=== PATIENT | female | born 1945 | race Caucasian/White ===

== ENCOUNTER 2016-05-02 15:37 | Emergency (ER) | payer MEDICARE ==
[~2016-05-02] VITALS: Ht 157.5 cm; Wt 70.0 kg
[2016-05-02 15:41] VITALS: BP 156/83; PULSE 84; RESP 17; TEMP 98.2; O2SAT 97
[2016-05-02] MEDS ORDERED: ROPI.25 PO (16:07)
[2016-05-02] MEDS ORDERED: LISI-515 PO (16:07)
[2016-05-02] MEDS ORDERED: SIMV5TAB3 PO (16:07)
--- NOTE | 2016-05-02 16:07 | PD ---
HPI . SLIP AND FALL HURT LEFT ELBOW/FOREARM Chief Complaint: Injury Time Seen by Provider: 16:07 Travel History International Travel<30 days: No Contact w/Intl Traveler<30days: No Traveled to known affect area: No History of Present Illness HPI 70-year-old female with hypertension and hyperlipidemia here with complaints of a slip and fall accident earlier today. Patient was walking and thinks she slipped on some uneven pavement. She is now complaining of pain in her left posterior elbow and distal to at the cubital fossa. She says initially the pain was very severe, however she took some hydrocodone at home and now the pain is "not relevant." She denies any LOC or head injury. She is accompanied by her significant other. She is right handed dominant. PFSH Past Medical History High Cholesterol: Yes Cerebrovascular Accident: Yes Hypertension: Yes Tetanus Vaccination: < 5 Years Influenza Vaccination: No ?: Not Menopausal: Yes Past Surgical History Cholecystectomy: Yes Eye Surgery: Yes (BILAT CATARACTS) Neurologic Surgery: Yes (BACK) Social History Alcohol Use: Yes (OCC) Tobacco Use: No Substance Use: No Allergies-Medications (Allergen,Severity, Reaction): Coded Allergies: Codeine (Verified Allergy, Severe, ITCHING, 05/02/16) Reported Meds & Prescriptions Reported Meds & Active Scripts Active Reported Requip (Ropinirole HCl) 0.25 Mg Tab 0.25 Mg PO HS Simvastatin 5 Mg Tab 5 Mg PO DAILY Lisinopril 20 Mg Tab 20 Mg PO DAILY Review of Systems General / Constitutional: No: Fever Eyes: No: Visual changes HENT: No: Headaches Cardiovascular: No: Chest Pain or Discomfort Respiratory: No: Shortness of Breath Gastrointestinal: No: Abdominal Pain Genitourinary: No: Dysuria Musculoskeletal: Positive: Pain (left elbow/forearm) Skin: No Rash Neurologic: No: Weakness Psychiatric: No: Depression Endocrine: No: Polydipsia Hematologic/Lymphatic: No: Easy Bruising Physical Exam Narrative GENERAL: AAO x 3, no acute distress, Well-nourished, well-developed patient. SKIN: Warm and dry. No visible rashes or bruising. HEAD: Normocephalic and atraumatic. EYES: No scleral icterus. No injection or drainage. ENT: No nasal drainage noted. Mucous membranes pink. Airway patent. NECK: Supple, trachea midline. No JVD. CARDIOVASCULAR: Regular rate and rhythm without murmurs, gallops, or rubs. RESPIRATORY: Breath sounds equal bilaterally. No accessory muscle use. No rhonchi or rales. GASTROINTESTINAL: Abdomen soft, non-tender, nondistended. EXTREMITIES: No cyanosis or edema. Point tenderness to posterior elbow and distal to antecubital fossa on the forearm. No ecchymosis or edema. No obvious deformity seen BACK: Nontender without obvious deformity. No CVA tenderness. PSYCH: AAO x 3, normal affect. Data Data Last Documented VS Vital Signs Date Time Temp Pulse Resp B/P Pulse Ox O2 Delivery O2 Flow Rate FiO2 05/02/16 16:02 Room Air 05/02/16 15:41 98.2 84 17 156/83 97 Orders Forearm (2vws) (05/02/16 16:11) Support Splint (05/02/16 16:52) MDM Medical Decision Making Medical Screen Exam Complete: Yes Emergency Medical Condition: Yes Differential Diagnosis Forearm fracture, elbow fracture, contusion Narrative Course 70-year-old female with hypertension and hyperlipidemia here with complaints of a slip and fall accident earlier today. Patient was walking and thinks she slipped on some uneven pavement. She is now complaining of pain in her left posterior elbow and distal to at the cubital fossa. She says initially the pain was very severe, however she took some hydrocodone at home and now the pain is "not relevant." She denies any LOC or head injury. She is accompanied by her significant other. She is right handed dominant. Patient seen and examined. She does have some point tenderness. X-ray ordered Her pain was controlled with hydrocodone she took at home. Last Impressions Radius/[facility]na X-Ray 05/02/16 1611 Signed Impressions: Service Date/Time: Monday, May 02, 2016 16:14 - CONCLUSION: 1. Extensive soft tissue swelling with no acute fracture or malalignment. 2. Status post open region internal fixation of a remote distal right radial fracture. 3. If further evaluation of the elbow is clinically indicated a standard 4 view study is recommended. Handy Wells MD will hold of on additional imaging. Recommend splinting for support. Discussed with patient. She will f/u with her Orthopedist in [place] tomorrow or [place]. Splint applied and patient tolerated without incident. Patient verbalized understanding of instructions, questions were answered, and thanked me for their care. I advised them if their condition worsens, please return to the nearest emergency room for further care. Diagnosis Primary Impression: Contusion of forearm, left Patient Instructions: General Instructions Additional Instructions: Rest the affected area as much as possible. Ice this area for 15-20 minutes at a time. You can do this every hour or as much as tolerated. Keep this area compressed (hillary bandage) as tolerated. Elevate this area. Use ibuprofen as needed for pain and inflammation. Continue your pain medications at home. Please follow up with your orthopedist in the next 3 days. You will need re- evaluation and removal of this splint. Med/Other Pt SpecificInfo: No Change to Meds Disposition: 01 DISCHARGE HOME Condition: Stable Karli López May 02, 2016 16:07
--- NOTE | 2016-05-02 16:45 | RADRPT ---
EXAM DATE/TIME: 05/02/2016 16:14 [facility] COMPARISON: No previous studies available for comparison. INDICATIONS : Left Forearm Pain and Swelling after fall. Posterior Medial aspect of Proximal forearm most painful. MEDICAL HISTORY : Left Wrist Fracture. SURGICAL HISTORY : Left Wrist. ENCOUNTER: Initial ACUITY: 1 day PAIN SCORE: 8/10 LOCATION: Left Forearm. FINDINGS: Two view examination of the left forearm demonstrates no evidence of fracture or dislocation. Bony m ineralization is normal. Extensive soft tissue swelling is noted along the lateral elbow. There is a screw-plate fixation device over the distal radius. There are degenerative changes in the carpus. CONCLUSION: 1. Extensive soft tissue swelling with no acute fracture or malalignment. 2. Status post open region internal fixation of a remote distal right radial fracture. 3. If further evaluation of the elbow is clinically indicated a standard 4 view study is recommended. Handy Wells MD on May 02, 2016 at 16:43 Board Certified Radiologist. This report was verified electronically.
== END 2016-05-02 18:28 | disposition home or self-care (01) ==
LOC: NEPB 15:37
DX: I10 Essential (primary) hypertension (principal); I25.2 Old myocardial infarction; S50.12XA Contusion of left forearm, initial encounter; W01.0XXA Fall on same level from slipping, tripping and stumbling without subsequent striking against object, initial encounter; Y93.01 Activity, walking, marching and hiking; Y92.480 Sidewalk as the place of occurrence of the external cause
CPT/HCPCS: 29105; 73090